=== PATIENT | female | born 2005 | race Caucasian/White ===

== ENCOUNTER 2023-10-08 16:00 | Outpatient (RCR) | payer MEDICAID, SELFPAY | END 2023-10-20 23:59 | disposition home or self-care (01) | LOC: SPT 16:00 | PROVIDERS: PCP Nurse Practitioner Family; Visit Provider Nurse Practitioner Family | DX: N81.10 Cystocele, unspecified (principal) | CPT/HCPCS: 97161 ==

== ENCOUNTER 2023-10-21 06:00 | Outpatient (RCR) | payer MEDICAID, SELFPAY | END 2023-11-20 23:59 | disposition home or self-care (01) | LOC: SPT 06:00 | PROVIDERS: PCP Nurse Practitioner Family; Visit Provider Nurse Practitioner Family | DX: N81.10 Cystocele, unspecified (principal) | CPT/HCPCS: 97110; 97140; 97530 ==